=== PATIENT | male | born 1940 | race Caucasian/White ===

== ENCOUNTER → 2016-03-26 | Outpatient (CLI) | payer OTHER, MEDICARE, MEDICAID ==
--- NOTE | 2016-03-26 16:40 | DX ---
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 Heart size is normal. There is chroni c tortuosity of the descending thoracic aorta with atherosclerotic calcification seen in the arch. Th ere is no adenopathy or mass lesion. There are no pulmonary nodules. There is no pleural effusion or pneumothorax. There is chronic posttraumatic change in the midthoracic spine. No acute thoracic compr essions are identified. No evidence for metastatic disease. Impression: Nothing acute identified. No evidence for pneumonia or metastatic sarcoma.
== END ==
LOC: FIMAGING 14:55
PROVIDERS: ATTEND Surgery
DX: Z03.89 Encounter for observation for other suspected diseases and conditions ruled out (principal); G04.90 Encephalitis and encephalomyelitis, unspecified; C49.4 Malignant neoplasm of connective and soft tissue of abdomen

== ENCOUNTER 2016-11-28 16:20 | Emergency (ER) | payer OTHER, MEDICARE, MEDICAID ==
[2016-11-28 16:27] VITALS: O2SAT 97
--- NOTE | 2016-11-28 16:46 | EDPHY ---
H & P Stated Complaint: cough/congestion/fevers burning feeling in chest and lungs Time Seen by Provider: 11/28/16 16:44 HPI/ROS: CHIEF COMPLAINT: Cough, lung pain HISTORY OF PRESENT ILLNESS: This patient is a 76 y/o male complaining of cough and associated deep burning sensation in his lungs worsening gradually over the last five days. His cough is productive with yellowish sputum. He has had an intermittent subjective fever , has been unable to sleep well (4-5 hours per night), and has felt "woozy". He endorses occasional shortness of breath, primarily with exertion. He was evaluated at the emergency department in [place], [place] recently for weakness, and treated for dehydration. He is otherwise healthy. He denies vomiting, diarrhea, urinary complaints, or other associated symptoms. REVIEW OF SYSTEMS: A 10 point review of systems was performed and is negative with the exception of the elements mentioned in the history of present illness. - Personal History Current Tetanus/Diphtheria Vaccine: Yes Tetanus Vaccine Date: 2008 - Medical/Surgical History PMH: Atrial fibrillation History of multiple orthopedic surgeries. Hx Asthma: No Hx Chronic Respiratory Disease: No Hx Diabetes: No Hx Cardiac Disease: No Hx Renal Disease: No Hx Cirrhosis: No Hx Alcoholism: No Hx HIV/AIDS: No Hx Splenectomy or Spleen Trauma: No Other PMH: bilateral TKA - Social History Smoking Status: Never smoked Additional Social History: Nonsmoker, no drug use, no alcohol use. PCP Dr. Quinn. - Physical Exam Exam: General Appearance: Alert, nontoxic Eyes: Pupils equal and round, no conjunctival pallor or injection ENT, Mouth: Mucous membranes moist Neck: Normal inspection Respiratory: Lungs are clear to auscultation Cardiovascular: Irregularly regular rate rhythm Gastrointestinal: Abdomen is soft and non-tender Neurological: A&O, nonfocal, normal gait Skin: Warm and dry, no rash Extremities: Nontender, no pedal edema Psychiatric: Mood and affect normal Constitutional: Initial Vital Signs Temperature (C) 36.8 C 11/28/16 16:24 Heart Rate 100 11/28/16 16:24 Respiratory Rate 20 11/28/16 16:24 Blood Pressure 120/84 H 11/28/16 16:24 O2 Sat (%) 97 11/28/16 16:24 O2 Delivery Mode Room Air Allergies/Adverse Reactions: No Known Allergies Allergy (Verified 10/05/17 16:23) Home Medications: Medication Instructions Recorded Valacyclovir HCl [Valtrex] 1,000 mg PO TID 09/09/15 Doxycycline Hyclate 100 mg PO BID #20 tablet 11/28/16 Hydrocodone/APAP 5/325 [[place] 1 tab PO Q4H PRN #15 tab 11/28/16 5/325] Medical Decision Making - Diagnostics EKG Interpretation: EKG interpreted by me reveals atrial fibrillation, ventricular rate 110. One PVC , LAD, borderline prolonged QT. Imaging Results: Imaging Impressions Chest X-Ray 11/28/16 16:39 Impression: No acute findings in the chest. Imaging: I viewed and interpreted images myself ED Course/Re-evaluation: 76 y/o male presents with 5 day history of worsening cough and "lung pain". Exam unremarkable, lungs are clear to auscultation bilaterally. Most likely secondary to pneumonia versus acute bronchitis. Chest pain does not sound ischemic and occurs only when he coughs. Stat EKG reveals atrial fibrillation, no ischemic changes. Plan for chest x-ray. Plan for labs including CBC, BMP, Troponin. Chest x-ray negative for acute processes. 17:55 Reassessed patient. Administered 600mg PO ibuprofen. He now tells me he has history of atrial fibrillation and takes an unknown medication for this condition. He did not take his medication this morning. I discussed admission, but the patient refuses at this time. He clearly understands risks and benefits of this decision. Plan to discharge home in good condition with prescription for Doxycycline. He requests a cough medicine that will also help him sleep. Vicodin prescribed. Strict follow up and return precautions discussed. I discussed the importance of medication compliance. The patient understands and is comfortable with this plan. Differential Diagnosis: Differential diagnosis includes though it is not limited to pneumonia, pneumothorax, pulmonary embolism, aortic dissection, pericarditis, acute coronary syndrome. - Data Points Laboratory Results: Laboratory Results 11/28/16 17:17 11/28/16 17:17 11/28/16 11/28/16 17:17 17:17 WBC 12.34 10^3/uL H 10^3/uL (3.80-9.50) RBC 4.48 10^6/uL 10^6/uL (4.40-6.38) Hgb 13.2 g/dL L g/dL (13.7-17.5) Hct 38.8 % L % (40.0-51.0) MCV 86.6 fL fL (81.5-99.8) MCH 29.5 pg pg (27.9-34.1) MCHC 34.0 g/dL g/dL (32.4-36.7) RDW 14.6 % % (11.5-15.2) Plt Count 321 10^3/uL 10^3/uL (150-400) MPV 9.3 fL fL (8.7-11.7) Neut % (Auto) 82.7 % H % (39.3-74.2) Lymph % (Auto) 8.4 % L % (15.0-45.0) [place] % (Auto) 6.5 % % (4.5-13.0) Eos % (Auto) 1.6 % % (0.6-7.6) Baso % (Auto) 0.2 % L % (0.3-1.7) Nucleat RBC Rel Count 0.0 % % (0.0-0.2) Absolute Neuts (auto) 10.20 10^3/uL H 10^3/uL (1.70-6.50) Absolute Lymphs (auto) 1.04 10^3/uL 10^3/uL (1.00-3.00) Absolute Monos (auto) 0.80 10^3/uL 10^3/uL (0.30-0.80) Absolute Eos (auto) 0.20 10^3/uL 10^3/uL (0.03-0.40) Absolute Basos (auto) 0.03 10^3/uL 10^3/uL (0.02-0.10) Absolute Nucleated RBC 0.00 10^3/uL 10^3/uL (0-0.01) Immature Gran % 0.6 % % (0.0-1.1) Immature Gran # 0.07 10^3/uL 10^3/uL (0.00-0.10) Sodium 135 mEq/L mEq/L (134-144) Potassium 4.5 mEq/L mEq/L (3.5-5.2) Chloride 102 mEq/L mEq/L (97-110) Carbon Dioxide 21 mEq/l L mEq/l (22-31) Anion Gap 12 mEq/L mEq/L (8-16) BUN 24 mg/dL H mg/dL (7-23) Creatinine 0.9 mg/dL mg/dL (0.7-1.3) Estimated GFR > 60 Glucose 80 mg/dL mg/dL (70-100) Calcium 9.6 mg/dL mg/dL (8.5-10.4) Troponin I < 0.012 ng/mL ng/mL (0.000-0.034) Medications Given: Discontinued Medications Sodium Chloride (Ns) 1,000 mls @ 0 mls/hr IV EDNOW ONE; Wide Open PRN Reason: Protocol Stop: 11/28/16 16:56 Last Admin: 11/28/16 17:19 Dose: 1,000 mls Ibuprofen (Motrin) 600 mg PO EDNOW ONE Stop: 11/28/16 17:51 Last Admin: 11/28/16 17:59 Dose: 600 mg Departure - Departure Disposition: Home, Routine, Self-Care Clinical Impression: Acute bronchitis Qualifiers: Bronchitis organism: other organism Qualified Code(s): J20.8 - Acute bronchitis due to other specified organisms Condition: Good Instructions: Acute Bronchitis (ED) Additional Instructions: 1. Follow up with your primary care provider tomorrow for further evaluation. 2. Please take your regular medications as prescribed. 3. Take your Doxycycline as prescribed. It is important to finish your entire course of antibiotics even if you are feeling better. 4. Return to the emergency department for high fever, worsening chest discomfort , shortness of breath, or other worsening of condition. Adult Pain & Fever Control: We recommend Acetaminophen (Tylenol) and Ibuprofen (Motrin,Advil) for pain and fever control. When fever is high or pain severe, both drugs can be used at the same time, but at different intervals. Please note the time differences. Your dose is: Acetaminophen 650mg every 4 to 6 hours Ibuprofen 600mg every 6-8 hours with food Note: do not take Acetaminophen with Hydrocodone (Vicodin, Lortab) or Oxycodone (Percocet). These medications also contain Acetaminophen. No more than 3000mg of Acetaminophen should be taken in 24 hours (for an adult). Referrals: Ramona Quinn MD [Primary Care Provider] - As per Instructions Prescriptions: Doxycycline Hyclate 100 mg PO BID #20 tablet Hydrocodone/APAP 5/325 [[place] 5/325] 1 tab PO Q4H PRN #15 tab PRN Reason: cough Report Scribed for: Susan Montilla Report Scribed by: Myriam Lanier Date of Report: 11/28/16 Time of Report: 16:53 Physician Review and Approval Statement: 11/28/16 16:53 Portions of this note were transcribed by a medical equipment sales. I personally performed a history, physical exam, medical decision making, and confirmed accuracy of information the transcribed note.
[2016-11-28] MEDS ORDERED: NS 1,000 ML IV ONE (16:55)
--- NOTE | 2016-11-28 17:09 | CPEKG ---
Heart Rate: 110 RR Interval: 545 QRSD Interval: 92 QT Interval: 352 QTC Interval: 477 QRS [place]: -35 T Wave [place]: 37 EKG Severity - ABNORMAL ECG - EKG Impression: ATRIAL FIBRILLATION, V-RATE 87-136 EKG Impression: VENTRICULAR PREMATURE COMPLEX EKG Impression: LEFT AXIS DEVIATION EKG Impression: BORDERLINE PROLONGED QT INTERVAL Electronically Signed By: Susan Montilla 28-Nov-2016 21:54:44
[2016-11-28 17:33] LABS: % IMMATURE GRANULYOCYTES 0.6 % (0.0-1.1); ABSOLUTE IMMATURE GRANULOCYTES 0.07 10^3/uL (0.00-0.10); ADD DIFF? NO; ADD MORPH? NO; ADD SCAN? NO; ATYPICAL LYMPHOCYTE FLAG 10 (0-99); FRAGMENT RBC FLAG 0 (0-99); HEMATOCRIT 38.8 % (40.0-51.0); HEMOGLOBIN 13.2 g/dL (13.7-17.5); LEFT SHIFT FLG 0 (0-99); LIPEMIA HEMOLYSIS FLAG 90 (0-99); MEAN CELL HEMOGLOBIN 29.5 pg (27.9-34.1); MEAN CELL VOLUME 86.6 fL (81.5-99.8); MEAN PLATELET VOLUME 9.3 fL (8.7-11.7); PLATELET CLUMPS FLAG 20 (0-99); PLATELET COUNT 321 10^3/uL (150-400); RED BLOOD CELL COUNT 4.48 10^6/uL (4.40-6.38); RED CELL DISTRIBUTION WIDTH 14.6 % (11.5-15.2)
[2016-11-28 17:45] LABS: ANION GAP 12 mEq/L (8-16); CALCIUM 9.6 mg/dL (8.5-10.4); CARBON DIOXIDE 21 mEq/l (22-31); CHLORIDE 102 mEq/L (97-110); CREATININE 0.9 mg/dL (0.7-1.3); GLOMERULAR FILTRATION RATE > 60; GLUCOSE 80 mg/dL (70-100); POTASSIUM 4.5 mEq/L (3.5-5.2); SODIUM 135 mEq/L (134-144)
[2016-11-28] MEDS ORDERED: IBUPROFEN 600 MG TAB PO ONE (17:50)
[2016-11-28 17:57] LABS: TROPONIN I < 0.012 ng/mL (0.000-0.034)
[2016-11-28 18:39] VITALS: BP 115/78; PULSE 108; RESP 18; TEMP 98.6
== END 2016-11-28 18:36 | disposition home or self-care (01) ==
DX: J20.8 Acute bronchitis due to other specified organisms (principal); E86.9 Volume depletion, unspecified

== ENCOUNTER 2016-12-04 22:11 | Emergency (ER) | payer OTHER, MEDICARE, MEDICAID ==
[2016-12-04 22:18] VITALS: TEMP 98.1
[2016-12-04] MEDS ORDERED: NS 500 ML IV ONE (22:23)
--- NOTE | 2016-12-04 22:42 | EDPHY ---
H & P Stated Complaint: weak/wobbly; seen recently for same; ?bronchitis Time Seen by Provider: 12/04/16 22:21 HPI/ROS: HPI The patient presents with feeling of weakness which occurred tonight after dinner. He said he felt weak and wobbly and generally unwell. Thus he came into the emergency department. He did not have any falls. He does not feel dizzy. He says he has been worried because he is having a difficult time working with the pharmacy to obtain an anticoagulant he has been prescribed by his primary care doctor for his atrial fibrillation. He says he was told that he could have a stroke if he does not take this medication, so was concerned. He was seen in this emergency department about 6 days ago for a cough and was diagnosed with bronchitis. He took a course of doxycycline. He says this morning he was feeling quite well and it was his 1st day without a cough for any other URI type symptoms. He was able to exercise at the gym and eat normally. He denies any chest pain, shortness of breath, nausea, vomiting, vision changes.. REVIEW OF SYSTEMS Constitutional: No fever, no chills. Eyes: No discharge. ENT: No sore throat. Cardiovascular: No chest pain, no palpitations. Respiratory: No cough, no shortness of breath. Gastrointestinal: No abdominal pain, no vomiting. Genitourinary: No hematuria. Musculoskeletal: No back pain. Skin: No rashes. Neurological: No headache. PMHx: Atrial fibrillation, recent bronchitis Soc Hx: Lives at home with a girlfriend, sometimes lives in [place] PHYSICAL General Appearance: Alert, no distress Eyes: Pupils equal and round no pallor or injection ENT, Mouth: Mucous membranes moist Respiratory: There are no retractions, lungs are clear to auscultation Cardiovascular: Tachycardic with regular rhythm Gastrointestinal: Abdomen is soft and non-tender, no masses, bowel sounds normal Neurological: A&O, moves all extremities Skin: Warm and dry, no rashes Musculoskeletal: Neck is supple non tender Extremities: symmetrical, full range of motion Psychiatric: Patient is oriented X 3, there is no agitation Source: Patient Exam Limitations: No limitations - Personal History Current Tetanus/Diphtheria Vaccine: Yes Tetanus Vaccine Date: 2008 - Medical/Surgical History Hx Asthma: No Hx Chronic Respiratory Disease: No Hx Diabetes: No Hx Cardiac Disease: No Hx Renal Disease: No Hx Cirrhosis: No Hx Alcoholism: No Hx HIV/AIDS: No Hx Splenectomy or Spleen Trauma: No Other PMH: PSHx: bilateral TKA, pins in ankle. PMHx: atrial fibrillation - Social History Smoking Status: Never smoked Constitutional: Initial Vital Signs Temperature (C) 36.7 C 12/04/16 22:14 Heart Rate 110 H 12/04/16 22:14 Respiratory Rate 14 12/04/16 22:14 Blood Pressure 134/87 H 12/04/16 22:14 O2 Sat (%) 99 12/04/16 22:14 O2 Delivery Mode Room Air Allergies/Adverse Reactions: No Known Allergies Allergy (Verified 11/28/16 16:23) Medical Decision Making - Diagnostics EKG Interpretation: EKG: Complete interpretation has been separately recorded in the [facility] archive. Summary impression: Atrial fibrillation Imaging Results: Imaging Impressions Chest X-Ray 12/04/16 22:23 Impression: No acute findings in the chest. Differential Diagnosis: This is a 76-year-old man with history of atrial fibrillation, not on any anticoagulation due to difficulty obtaining medications who presents from home with complaint of generalized weakness and feeling wobbly for the last several hours. He was recently seen for a bronchitis in the emergency department, he is taking doxycycline. He denies any clear complaints. On exam, he is tachycardic, he appears quite anxious. His exam is otherwise unremarkable. Differential diagnosis includes dehydration, electrolyte disturbance, renal failure, heart failure, atrial fibrillation with symptoms of palpitations. In the emergency department, the patient was given a 500 mL bolus of normal saline for presumed volume depletion. Labs were checked and were relatively unremarkable, BUN was slightly elevated, though on par with prior visits. He could be experiencing mild dehydration I have explained this to him. His BNP was slightly elevated up from 500 when it was last checked. Chest x-ray demonstrated no signs of heart failure, thus I doubt CHF is the cause of his symptoms today. It is unclear exactly what is causing his weakness. He was able to drink fluids in the emergency department without any difficulty, he was able to walk with a steady normal gait. He will be discharged home and I have instructed him to follow up with his primary care doctor in the next few days. Because of his difficulty obtaining his anticoagulant, I am not sure which, I have put in a referral for case management. - Data Points Laboratory Results: Laboratory Results 12/04/16 22:40 12/04/16 22:40 12/04/16 12/04/16 12/04/16 23:18 22:40 22:40 WBC RBC Hgb Hct MCV MCH MCHC RDW Plt Count MPV Neut % (Auto) Lymph % (Auto) [place] % (Auto) Eos % (Auto) Baso % (Auto) Nucleat RBC Rel Count Absolute Neuts (auto) Absolute Lymphs (auto) Absolute Monos (auto) Absolute Eos (auto) Absolute Basos (auto) Absolute Nucleated RBC Immature Gran % Immature Gran # PT 14.7 SEC SEC (12.0-15.0) INR 1.15 (0.83-1.16) APTT 38.6 SEC H SEC (23.0-38.0) Sodium 140 mEq/L mEq/L (134-144) Potassium 4.2 mEq/L mEq/L (3.5-5.2) Chloride 105 mEq/L mEq/L (97-110) Carbon Dioxide 21 mEq/l L mEq/l (22-31) Anion Gap 14 mEq/L mEq/L (8-16) BUN 24 mg/dL H mg/dL (7-23) Creatinine 0.9 mg/dL mg/dL (0.7-1.3) Estimated GFR > 60 Glucose 116 mg/dL H mg/dL (70-100) Calcium 10.2 mg/dL mg/dL (8.5-10.4) Troponin I 0.013 ng/mL ng/mL (0.000-0.034) NT-Pro-B Natriuret Pep 1500 pg/mL H pg/mL (0-450) Urine Color YELLOW Urine Appearance HAZY Urine pH 5.0 (5.0-7.5) Ur Specific [place] 1.028 (1.002-1.030) Urine Protein NEGATIVE (NEGATIVE) Urine Ketones NEGATIVE (NEGATIVE) Urine Blood NEGATIVE (NEGATIVE) Urine Nitrate NEGATIVE (NEGATIVE) Urine Bilirubin NEGATIVE (NEGATIVE) Urine Urobilinogen 2.0 EU H EU (0.2-1.0) Ur Leukocyte Esterase NEGATIVE (NEGATIVE) Urine Glucose NEGATIVE (NEGATIVE) 12/04/16 22:40 WBC 7.62 10^3/uL 10^3/uL (3.80-9.50) RBC 4.40 10^6/uL 10^6/uL (4.40-6.38) Hgb 13.3 g/dL L g/dL (13.7-17.5) Hct 38.1 % L % (40.0-51.0) MCV 86.6 fL fL (81.5-99.8) MCH 30.2 pg pg (27.9-34.1) MCHC 34.9 g/dL g/dL (32.4-36.7) RDW 14.2 % % (11.5-15.2) Plt Count 330 10^3/uL 10^3/uL (150-400) MPV 8.9 fL fL (8.7-11.7) Neut % (Auto) 70.5 % % (39.3-74.2) Lymph % (Auto) 18.1 % % (15.0-45.0) [place] % (Auto) 7.5 % % (4.5-13.0) Eos % (Auto) 2.8 % % (0.6-7.6) Baso % (Auto) 0.7 % % (0.3-1.7) Nucleat RBC Rel Count 0.0 % % (0.0-0.2) Absolute Neuts (auto) 5.38 10^3/uL 10^3/uL (1.70-6.50) Absolute Lymphs (auto) 1.38 10^3/uL 10^3/uL (1.00-3.00) Absolute Monos (auto) 0.57 10^3/uL 10^3/uL (0.30-0.80) Absolute Eos (auto) 0.21 10^3/uL 10^3/uL (0.03-0.40) Absolute Basos (auto) 0.05 10^3/uL 10^3/uL (0.02-0.10) Absolute Nucleated RBC 0.00 10^3/uL 10^3/uL (0-0.01) Immature Gran % 0.4 % % (0.0-1.1) Immature Gran # 0.03 10^3/uL 10^3/uL (0.00-0.10) PT INR APTT Sodium Potassium Chloride Carbon Dioxide Anion Gap BUN Creatinine Estimated GFR Glucose Calcium Troponin I NT-Pro-B Natriuret Pep Urine Color Urine Appearance Urine pH Ur Specific [place] Urine Protein Urine Ketones Urine Blood Urine Nitrate Urine Bilirubin Urine Urobilinogen Ur Leukocyte Esterase Urine Glucose Medications Given: Discontinued Medications Sodium Chloride (Ns) 500 mls @ 1,000 mls/hr IV EDNOW ONE PRN Reason: Protocol Stop: 12/04/16 22:52 Last Admin: 12/04/16 22:39 Dose: 500 mls Departure - Departure Disposition: Home, Routine, Self-Care Clinical Impression: Weakness Atrial fibrillation Qualifiers: Atrial fibrillation type: chronic Qualified Code(s): I48.2 - Chronic atrial fibrillation Condition: Good Instructions: Weakness (ED) Additional Instructions: The cause of your weakness is unclear, because of this you should follow up with your regular doctor in the next 1-2 days. I do not think that your symptoms are due to a stroke. I have given her information to the case finishing machine adjuster to see if she can help you tomorrow obtain your blood thinner medication for your atrial fibrillation. Referrals: Ramona Quinn MD [Primary Care Provider] - As per Instructions
[2016-12-04 22:49] LABS: % IMMATURE GRANULYOCYTES 0.4 % (0.0-1.1); ABSOLUTE IMMATURE GRANULOCYTES 0.03 10^3/uL (0.00-0.10); ADD DIFF? NO; ADD MORPH? NO; ADD SCAN? NO; ATYPICAL LYMPHOCYTE FLAG 20 (0-99); FRAGMENT RBC FLAG 0 (0-99); HEMATOCRIT 38.1 % (40.0-51.0); HEMOGLOBIN 13.3 g/dL (13.7-17.5); LEFT SHIFT FLG 0 (0-99); LIPEMIA HEMOLYSIS FLAG 90 (0-99); MEAN CELL HEMOGLOBIN 30.2 pg (27.9-34.1); MEAN CELL HEMOGLOBIN CONCENTR. 34.9 g/dL (32.4-36.7); MEAN CELL VOLUME 86.6 fL (81.5-99.8); MEAN PLATELET VOLUME 8.9 fL (8.7-11.7); PLATELET CLUMPS FLAG 0 (0-99); PLATELET COUNT 330 10^3/uL (150-400); RED CELL DISTRIBUTION WIDTH 14.2 % (11.5-15.2)
[2016-12-04 22:58] LABS: INR 1.15 (0.83-1.16); PROTIME(PATIENT) 14.7 SEC (12.0-15.0)
[2016-12-04 22:59] LABS: APTT 38.6 SEC (23.0-38.0)
[2016-12-04 23:13] LABS: ANION GAP 14 mEq/L (8-16); CALCIUM 10.2 mg/dL (8.5-10.4); CARBON DIOXIDE 21 mEq/l (22-31); CHLORIDE 105 mEq/L (97-110); CREATININE 0.9 mg/dL (0.7-1.3); GLOMERULAR FILTRATION RATE > 60; GLUCOSE 116 mg/dL (70-100); POTASSIUM 4.2 mEq/L (3.5-5.2); SODIUM 140 mEq/L (134-144)
--- NOTE | 2016-12-04 23:23 | CPEKG ---
Heart Rate: 98 RR Interval: 612 QRSD Interval: 104 QT Interval: 376 QTC Interval: 481 QRS [place]: -17 T Wave [place]: 40 EKG Severity - ABNORMAL ECG - EKG Impression: ATRIAL FIBRILLATION EKG Impression: BORDERLINE LEFT AXIS DEVIATION Electronically Signed By: Kaylin Jasso 05-Dec-2016 05:35:18
[2016-12-04 23:25] LABS: TROPONIN I 0.013 ng/mL (0.000-0.034)
[2016-12-04 23:32] LABS: COLOR YELLOW; LEUKOCYTE ESTERASE,URINE NEGATIVE (NEGATIVE); NITRITE,URINE NEGATIVE (NEGATIVE)
[2016-12-05 00:44] VITALS: BP 117/76; PULSE 86; RESP 16; O2SAT 96
== END 2016-12-05 00:42 | disposition home or self-care (01) ==
DX: R53.1 Weakness (principal); I48.2 Chronic atrial fibrillation; E86.9 Volume depletion, unspecified

== ENCOUNTER → 2017-03-24 | Outpatient (CLI) | payer OTHER, MEDICARE, MEDICAID | LOC: BHFA 10:45 | PROVIDERS: ATTEND Internal Medicine Cardiovascular Disease | DX: I48.91 Unspecified atrial fibrillation (principal) ==

== ENCOUNTER 2017-05-25 14:52 | Emergency (ER) | payer OTHER, MEDICARE ==
[2017-05-25 14:59] VITALS: RESP 18; TEMP 98.2
--- NOTE | 2017-05-25 15:17 | EDPHY ---
H & P Time Seen by Provider: 05/25/17 15:04 HPI/ROS: CHIEF COMPLAINT: Right ankle and foot pain HISTORY OF PRESENT ILLNESS: 77-year-old male presents with right ankle and foot pain. Last night, he got out of bed in the dark to walk to the bathroom. He stumbled over some shoes and fell forward, landing on his right foot. He had minimal pain at that time. However when he woke this morning he had increased pain and swelling in the right foot and ankle. He is able to bear weight, but has pain with ambulation. No other injuries. ROS: No numbness, weakness, bleeding, syncopal episode, other injury. Past Medical/Surgical History: Atrial fibrillation Smoking Status: Never smoked Physical Exam: Alert, pleasant Extremities: Right ankle with swelling over the medial and lateral malleolus, without tenderness. There is no posterior lateral malleolus tenderness, midfoot tenderness. Tender over the proximal fifth metatarsal tenderness. The ankle is stable and the Achilles tendon is intact. Vascular: Pedal pulses 2+ Neurologic: Ankle and foot with normal sensation and strength Skin: Intact Constitutional: Initial Vital Signs Temperature (C) 36.8 C 05/25/17 14:57 Heart Rate 87 05/25/17 14:57 Respiratory Rate 18 05/25/17 14:57 Blood Pressure 115/77 05/25/17 14:57 O2 Sat (%) 96 05/25/17 14:57 O2 Delivery Mode Room Air Allergies/Adverse Reactions: No Known Allergies Allergy (Verified 05/25/17 14:56) Home Medications: Medication Instructions Recorded Blood Pressure Med 05/25/17 Medical Decision Making - Diagnostics Imaging Results: Imaging Impressions Ankle X-Ray 05/25/17 15:09 Impression: 1. No acute osseous findings. 2 Additional findings as above. Foot X-Ray 05/25/17 15:14 Impression: 1. No acute osseous findings. 2. Multifocal degenerative change. 3. Additional findings, as above. Departure - Departure Disposition: Home, Routine, Self-Care Clinical Impression: Right ankle sprain Qualifiers: Encounter type: initial encounter Involved ligament of ankle: unspecified ligament Qualified Code(s): S93.401A - Sprain of unspecified ligament of right ankle, initial encounter Condition: Good Instructions: Ankle Sprain (ED), Ankle Stirrup Splint (ED) Additional Instructions: Ibuprofen 600 mg 3 times daily while the pain persists. Referrals: Terry Kong MD [Primary Care Provider] - As per Instructions Ace Robins MD [Medical Doctor] - As per Instructions (Follow-up with Dr. Robins in the office if you are still having pain in 10-14 days.)
[2017-05-25 15:59] VITALS: BP 98/64; PULSE 98; O2SAT 97
== END 2017-05-25 15:59 | disposition home or self-care (01) ==
DX: S93.401A Sprain of unspecified ligament of right ankle, initial encounter (principal); W01.0XXA Fall on same level from slipping, tripping and stumbling without subsequent striking against object, initial encounter; Y92.002 Bathroom of unspecified non-institutional (private) residence as the place of occurrence of the external cause; Y99.8 Other external cause status; Y93.01 Activity, walking, marching and hiking
CPT/HCPCS: 73610; 73630; 99283; L4350

== ENCOUNTER → 2018-06-19 | Outpatient (CLI) | payer OTHER, MEDICARE | LOC: FIMAGING 16:48 | PROVIDERS: ATTEND Physician Assistant Medical | DX: M19.071 Primary osteoarthritis, right ankle and foot (principal) ==